=== PATIENT | male | born 1950 | race Caucasian/White ===

== ENCOUNTER 2017-04-08 08:49 | Emergency (ER) | payer BC ==
[2017-04-08 09:00] VITALS: BP 112/71
[2017-04-08] MEDS ORDERED: DOXYcycline CAP(*) 100 MG PO ONE (10:13)
--- NOTE | 2017-04-08 10:49 | UC ---
General HPI - HPI Summary HPI Summary: TICK ON RIGHT TORSO, WOULD LIKE TO HAVE IT REMOVED; SELF REMOVED TICK FROM LEFT LEG THIS MORNING. NO FEVER. NO JOINT PAIN. NO WEAKNESS. NO HISTORY OF LYME DISEASE. - History of Current Complaint Chief Complaint: [place]ES[place] Stated Complaint: TICK BITES Time Seen by Provider: 04/08/17 10:02 Hx Obtained From: Patient Onset/Duration: Gradual Onset, Lasting Hours Onset Severity: Mild Current Severity: Mild Pain Intensity: 0 Associated Signs & Symptoms: Negative: Abdominal Pain, Cough, Fever, Headache, Weakness - Allergy/Home Medications Allergies/Adverse Reactions: Allergies Allergy/AdvReac Type Severity Reaction Status Date / Time [place] Oil Allergy Anaphylatic Verified 04/08/17 08:52 Shock Home Medications: Home Medications Tadalafil [Cialis] 1 tab PO 04/08/17 [History] PMH/Surg Hx/FS Hx/Imm Hx Previously Healthy: Yes - Surgical History Surgical History: Yes Surgery Procedure, Year, and Place: hernia - Family History Known Family History: Negative: Blood Disorder - Social History Occupation: Retired Lives: With Family Alcohol Use: Daily Alcohol Amount: less than 2 drink Substance Use Type: None Smoking Status (MU): Never Smoked Tobacco Review of Systems Constitutional: Negative Skin: Rash Eyes: Negative ENT: Negative Respiratory: Negative Cardiovascular: Negative Gastrointestinal: Negative Genitourinary: Negative Motor: Negative Neurovascular: Negative Musculoskeletal: Negative Neurological: Negative Psychological: Negative Is Patient Immunocompromised?: No All Other Systems Reviewed And Are Negative: Yes Physical Exam Triage Information Reviewed: Yes Appearance: Well-Appearing, No Pain Distress, Well-Nourished Vital Signs: Initial Vital Signs Temp 98.8 F 04/08/17 08:54 Pulse 75 04/08/17 08:54 Resp 16 04/08/17 08:54 BP 112/71 04/08/17 08:54 Pulse Ox 100 04/08/17 08:54 Vital Signs Reviewed: Yes Eye Exam: Normal ENT Exam: Normal ENT: Positive: Normal ENT inspection, Hearing grossly normal, Pharynx normal, TMs normal Dental Exam: Normal Neck exam: Normal Respiratory Exam: Normal Respiratory: Positive: Chest non-tender, Lungs clear, Normal breath sounds, No respiratory distress, No accessory muscle use Cardiovascular Exam: Normal Cardiovascular: Positive: RRR, No Murmur, Pulses Normal Abdominal Exam: Normal Musculoskeletal Exam: Normal Neurological Exam: Normal Psychological Exam: Normal Skin: Positive: rashes Procedures - Procedure Summary Procedure Summary: TICK REMOVED FROM RIGHT TORSO USING TICK TWISTER. PATEINT TOLERATED PROCEDURE WELL. Course/Dx - Differential Dx - Multi-Symptom Differential Diagnoses: Metabolic Abnormality, Sepsis Provider Diagnoses: TICK BITE REMOVAL; TICK BITE PROPHYLAXIS Discharge - Discharge Plan Condition: Stable Disposition: HOME Patient Education Materials: Lyme Disease (ED), Tick Bite (ED) [place]errals: [facility] [place] [place]Outside]
== END 2017-04-08 10:17 | disposition home or self-care (01) ==
LOC: UCEAST 08:49
DX: S20.96XA Insect bite (nonvenomous) of unspecified parts of thorax, initial encounter (principal); W57.XXXA Bitten or stung by nonvenomous insect and other nonvenomous arthropods, initial encounter
CPT/HCPCS: 99202; A9270-GY; G0463

== ENCOUNTER 2018-09-14 13:55 | Emergency (ER) | payer MEDICARE, OTHER ==
[2018-09-14 14:12] VITALS: BP 109/63
[2018-09-14] MEDS ORDERED: DOXYcycline CAP(*) 100 MG PO ONE (15:01)
--- NOTE | 2018-09-14 15:02 | UC ---
Skin Complaint HPI - HPI Summary HPI Summary: 67 y/o male presents to the urgent care c/o tick bite above the umbilicus that he removed 2 hrs ago. pt reports he went to walk his dog last night. He doesn't think it has been more than 48hrs. Tick was engorged. Pt denies any pain of fever. Pt had Hx of tick bite in the past, but he has always gotten the prophylactic treatment. Pt denies HUTCHINS, joint pain, SOB, chest pain, abdominal pain, N/V/d. - History of Current Complaint Chief Complaint: UCSkin Time Seen by Provider: 09/14/18 15:01 Stated Complaint: TICK BITE Hx Obtained From: Patient Onset/Duration: Sudden Onset, Lasting Days - 1 day, Other - tick removed 2 hrs ago Skin Exposure Onset/Duration: Days Ago - 1 day Timing: Constant Onset Severity: Mild Current Severity: Mild Pain Intensity: 1 Pain Scale Used: 0-10 Numeric Location: Discrete - above umbilicus Character: Redness Aggravating Factor(s): Touch Alleviating Factor(s): Other - tick removal Associated Signs & Symptoms: Positive: Rash - tick bite above umbilicus. Negative: Drainage, Tenderness Related History: Possible Reaction to: Insect - Allergy/Home Medications Allergies/Adverse Reactions: Allergies Allergy/AdvReac Type Severity Reaction Status Date / Time sunflower oil Allergy Intermediate Coughing Verified 09/14/18 14:12 sunflower seed Allergy Intermediate Coughing Verified 09/14/18 14:12 PMH/Surg Hx/FS Hx/Imm Hx Previously Healthy: Yes - Pt denies PMHX - Surgical History Surgical History: Yes Surgery Procedure, Year, and Place: sinus surgery 2018 - Family History Known Family History: Positive: None - Pt deneis FMHX Negative: Blood Disorder - Social History Occupation: Retired Lives: With Family Alcohol Use: Weekly Alcohol Amount: less than 2 drink Substance Use Type: None Smoking Status (MU): Never Smoked Tobacco Review of Systems All Other Systems Reviewed And Are Negative: Yes Constitutional: Positive: Negative Skin: Positive: Other - tick bite over umbilicus Eyes: Positive: Negative ENT: Positive: Negative Respiratory: Positive: Negative Cardiovascular: Positive: Negative Gastrointestinal: Positive: Negative Genitourinary: Positive: Negative Motor: Positive: Negative Neurovascular: Positive: Negative Musculoskeletal: Positive: Negative Neurological: Positive: Negative Psychological: Positive: Negative Is Patient Immunocompromised?: No Physical Exam - Summary Physical Exam Summary: Vital Signs Reviewed: Yes General: well developed, well nourished male sitting in the examining table w/o any apparent distress. Eyes: Positive: Conjunctiva Clear - PERRLA, EOMI ENT: Positive: Normal ENT inspection, Hearing grossly normal, Pharynx normal, TMs normal Neck: Positive: Supple, Nontender, No Lymphadenopathy Respiratory: Positive: Chest nontender, Lungs clear, Normal breath sounds Cardiovascular: Positive: RRR, No Murmur, Pulses Normal Abdomen Description: Positive: Nontender, No Organomegaly, Soft. Negative: CVA Tenderness (R), CVA Tenderness (L) Bowel Sounds: Positive: Present Musculoskeletal: Positive: Strength Intact, ROM Intact, No Edema Neurological Exam: Normal Psychological Exam: Normal Skin: Positive: rashes - above umbilicus w/ tick bite with surrounding erythema , non tender to palpation. tick no longer present, no swelling or drainage observed. Triage Information Reviewed: Yes Vital Signs: Initial Vital Signs Temp 99.3 F 09/14/18 14:08 Pulse 66 09/14/18 14:08 Resp 18 09/14/18 14:08 BP 109/63 09/14/18 14:08 Pulse Ox 100 09/14/18 14:08 Course/Dx - Course Course Of Treatment: 67 y/o male presents to the urgent care c/o tick bite above the umbilicus that he removed 2 hrs ago. pt reports he went to walk his dog last night. He doesn't think it has been more than 48hrs. Tick was engorged. Pt denies any pain of fever. Pt had Hx of tick bite in the past, but he has always gotten the prophylactic treatment. Pt denies HUTCHINS, joint pain, SOB, chest pain, abdominal pain, N/V/d. Hx obtained. Pt w/ above umbilicus w/ tick bite with surrounding erythema, non tender to palpation. tick no longer present, no swelling or drainage observed. Areas cleaned w/ alcohol swab and bacitracin ointment applied over tick bite. Antibiotic prophylaxis with Doxycycline given to the patient to prevent lyme Disease.. Pt tolerated well medication. Pt advised to observe the area for the development or Erythema Migrans for upto 30 days following exposure. Advised if he develops fever or erythema Migrans to return to the clinic or PCP for further treatment .Pt understood and agreed with plan of care. - Differential Diagnoses - Skin Complaint Differential Diagnoses: Abscess, Local Allergic Reaction, Tick Born Illness, VRE - bee sting, insect bite - Diagnoses Provider Diagnosis: Tick bite of abdomen Discharge - Sign-Out/Discharge Documenting (check all that apply): Patient Departure - d/C home All imaging exams completed and their final reports reviewed: No Studies - Discharge Plan Condition: Stable Disposition: HOME Patient Education Materials: Tick Bite (ED) [place]: [facility] [place] [facility] [place] [place]] - If Needed Additional Instructions: 1- Please observe the area for the development or Erythema Migrans for upto 30 days following exposure. Components of the tick saliva can cause transient erythema that should not be confused with Erythema Migrans. If you develop the bull's eye rash, fever, joint pains please return to the urgent care or f/u with your PCP for further management. 2-Antibiotic prophylaxis with Doxycycline was given to you today to prevent lyme Disease. Lyme serology can be drawn in 2 weeks with your PCP to r/o Lyme disease since there is probability of negative results at early exposure. - Billing Disposition and Condition Condition: STABLE Disposition: Home
== END 2018-09-14 15:21 | disposition home or self-care (01) ==
LOC: UCEAST 13:55
DX: S30.861A Insect bite (nonvenomous) of abdominal wall, initial encounter (principal); W57.XXXA Bitten or stung by nonvenomous insect and other nonvenomous arthropods, initial encounter
CPT/HCPCS: 99212; A9270-GY; G0463